=== PATIENT | female | born 1990 | race African-American/Black ===

== ENCOUNTER 2018-05-10 22:40 | Emergency (ER) | payer OTHER ==
[~2018-05-10] VITALS: Ht 167.6 cm; Wt 86.0 kg
[2018-05-11 00:05] VITALS: BP 130/63
== END 2018-05-11 00:58 | disposition home or self-care (01) ==
LOC: ER 22:40
DX: F41.0 Panic disorder [episodic paroxysmal anxiety] (principal); R06.02 Shortness of breath; R11.0 Nausea; F17.290 Nicotine dependence, other tobacco product, uncomplicated
CPT/HCPCS: 81025; 93005; 99283